=== PATIENT | male | born 1970 | race Caucasian/White ===

== ENCOUNTER 2018-08-24 06:35 | Emergency (ER) | payer OTHER ==
[2018-08-24] MEDS ORDERED: methylPREDNISolone SOD SUCCI 125 MG/2 ML VIAL IM ONE (07:14)
[2018-08-24] MEDS ORDERED: cefTRIAXone 1,000 MG VIAL (IM USE) IM STA (07:14)
[2018-08-24] MEDS ORDERED: diphenhydrAMINE 50 MG CAP PO STA (07:16)
[2018-08-24] MEDS ORDERED: FAMOTIDINE 20 MG TAB PO STA (07:16)
--- NOTE | 2018-08-24 07:31 | ED ---
ENT HPI - General Chief complaint: ENT Stated complaint: Throat problems,KASEY Time Seen by Provider: 08/24/18 06:56 Source: patient, RN notes reviewed, old records reviewed Mode of arrival: ambulatory Limitations: no limitations - History of Present Illness Initial comments: Patient is a 47-year-old male with history of diabetes, hypertension presents em ergency department today with 3 days of sore throat, today he reports he woke up today with uvula swelling. He states is somewhat difficult to swallow. Patient reports he had a similar episode like this 2 weeks ago. He was told it was viral by his PCP. Patient states that he's been taking throat spray decongestants with little relief. Patient reports that he's had no fevers or chills. He states he otherwise feels well, besides sinus drainage. Patient is on an EMELI inhibitor. He denies any history of sick contacts. No travel history. He is up-to-date on his vaccines.Patient denies any recent fever, chills, shortness of breath, chest pain, back pain, abdominal pain, nausea vomiting, numbness or tingling, dysuria or hematuria, constipation or diarrhea, headaches or visual changes, or any other current symptoms - Related Data Home Medications Medication Instructions Recorded Confirmed Atorvastatin [Lipitor] 80 mg PO DAILY 08/24/18 08/24/18 Glimepiride [Amaryl] 4 mg PO DAILY 08/24/18 08/24/18 Lisinopril 20 mg PO DAILY 08/24/18 08/24/18 metFORMIN HCL [Glucophage] 1,000 mg PO DAILY 08/24/18 08/24/18 Previous Rx's Medication Instructions Recorded Azithromycin 250 mg PO DAILY #6 tablet 08/24/18 diphenhydrAMINE [Benadryl] 25 mg PO QID PRN #20 capsule 08/24/18 predniSONE 20 mg PO BID #10 tab 08/24/18 Allergies Allergy/AdvReac Type Severity Reaction Status Date / Time No Known Allergies Allergy Verified 08/24/18 06:42 Review of Systems ROS Statement: Those systems with pertinent positive or pertinent negative responses have been documented in the HPI. ROS Other: All systems not noted in ROS Statement are negative. Past Medical History Past Medical History: Diabetes Mellitus, Hyperlipidemia, Hypertension History of Any Multi-Drug Resistant Organisms: None Reported Additional Past Surgical History / Comment(s): finger tendon sx Past Psychological History: No Psychological Hx Reported Smoking Status: Never smoker Past Alcohol Use History: None Reported Past Drug Use History: None Reported General Exam - General Exam Comments Initial Comments: 47-year-old male. Alert and oriented. No distress. Limitations: no limitations General appearance: alert, in no apparent distress Head exam: Present: atraumatic Eye exam: Present: normal appearance, PERRL, EOMI. Absent: scleral icterus, conjunctival injection, periorbital swelling ENT exam: Present: normal exam, mucous membranes moist, other. Absent: normal oropharynx (uvula swelling, erythema. ) Neck exam: Present: normal inspection, lymphadenopathy (anterior cervical ). Absent: tenderness, meningismus, full ROM Respiratory exam: Present: normal lung sounds bilaterally. Absent: respiratory distress, wheezes, rales, rhonchi, stridor Cardiovascular Exam: Present: regular rate, normal rhythm, normal heart sounds. Absent: systolic murmur, diastolic murmur, rubs, gallop, clicks GI/Abdominal exam: Present: soft, normal bowel sounds. Absent: distended, tenderness, guarding, rebound, rigid Extremities exam: Present: normal inspection, full ROM, normal capillary refill. Absent: tenderness, pedal edema, joint swelling, calf tenderness Back exam: Present: normal inspection Neurological exam: Present: alert, oriented X3, CN II-XII intact Psychiatric exam: Present: normal affect, normal mood Skin exam: Present: warm, dry, intact, normal color Course Vital Signs 08/24/18 06:37 Temperature 98.5 F Pulse Rate 97 Respiratory 18 Rate Blood Pressure 158/90 O2 Sat by Pulse 99 Oximetry Medical Decision Making - Medical Decision Making Patient is a 47 year old male presents to ED today for throat swelling, patient has evidence of uvuitis. Patient has erythema and tonsilar adenopathy. Patient was given IM Solu-Medrol, Pepcid and Benadryl. Physical Patient IM Rocephin. He does have some sinusitis complaints as well. We discussed patient's symptoms could be related to lisinopril. Discussed discontinuing of this time. We'll discharge the Patient with steroids, azithromycin to cover for H influenza relation to uveitis. Patient has been advised to have strict return parameters. Discussed PCP follow-up. Disposition Clinical Impression: Uvulitis Disposition: HOME SELF-CARE Condition: Good Instructions (If sedation given, give patient instructions): Uvulitis (ED) Additional Instructions: Patient was up with your primary care physician within the next 1-2 days. Patient should take the steroids antibiotic as prescribed. Recommended discontinuing lisinopril until PCP follow up. Recommended also dosing Benadryl to help with possible ALLERGY relationships symptoms. Patient should return to emergency department if any alarming signs or symptoms occur. Prescriptions: Azithromycin 250 mg PO DAILY #6 tablet diphenhydrAMINE [Benadryl] 25 mg PO QID PRN #20 capsule PRN Reason: Allergic Reaction predniSONE 20 mg PO BID #10 tab Is patient prescribed a controlled substance at d/c from ED?: No Referrals: None,Stated [Primary Care Provider] - 1-2 days Time of Disposition: 07:31
[2018-08-24 08:01] VITALS: BP 150/88; PULSE 90; RESP 16; TEMP 98.3
== END 2018-08-24 08:00 | disposition home or self-care (01) ==
LOC: EC 06:35
DX: K12.2 Cellulitis and abscess of mouth (principal); J02.0 Streptococcal pharyngitis; R06.00 Dyspnea, unspecified; E11.9 Type 2 diabetes mellitus without complications; E78.5 Hyperlipidemia, unspecified; I10 Essential (primary) hypertension; Z79.84 Long term (current) use of oral hypoglycemic drugs; Z79.899 Other long term (current) drug therapy
CPT/HCPCS: 87430; 99285; 96372 ×2; J2930; J0696

== ENCOUNTER → 2020-11-11 | Outpatient (CLI) | payer OTHER ==
--- NOTE | 2020-11-11 07:44 | US ---
EXAMINATION TYPE: US liver DATE OF EXAM: 11/11/2020 COMPARISON: NONE CLINICAL HISTORY: 50-year-old male R94.5 abn liver function test. EXAM MEASUREMENTS: Liver Length: 20.2 cm Gallbladder Wall: 0.2 cm CBD: 0.2 cm Right Kidney: 13.4 x 6.5 x 5.4 cm Pancreas: Only small portions of the pancreatic body and tail are seen. The head and neck are mostly obscured by bowel gas. Liver: Echogenic with poor field attenuation. Area of focal sparing along the gallbladder fossa juan jose ures 1.6 cm Gallbladder: No stones seen there are no abnormal distention, wall thickening, or surrounding fluid. Evidence for sonographic Julian's sign: No CBD: wnl Right Kidney: No hydronephrosis. IMPRESSION: 1. At least moderate hepatic steatosis. 2. No gallstones or biliary ductal dilatation.
== END | disposition home or self-care (01) ==
LOC: RADUSWWP 07:01
PROVIDERS: ATTEND Internal Medicine
DX: K76.0 Fatty (change of) liver, not elsewhere classified (principal)
CPT/HCPCS: 76705